=== PATIENT | male | born 1955 | race Caucasian/White ===

== ENCOUNTER 2021-08-07 16:45 | Inpatient (IN) | payer MEDICARE ==
--- NOTE | 2021-08-07 17:58 | XR ---
EXAMINATION TYPE: XR chest 2V DATE OF EXAM: 08/07/2021 COMPARISON: 08/23/2014 HISTORY: Chest pain TECHNIQUE: FINDINGS: Heart is normal. There are sternal wires. Lungs are clear of infiltrate. Costophrenic angle s are clear. Bony thorax is intact. IMPRESSION: No active cardiopulmonary disease. Normal heart. No change.
[2021-08-07 18:03] LABS: Basophils % (A) 0 %; Eosinophils # (A) 0.3 k/uL (0-0.7); Eosinophils % (A) 4 %; HCT 45.4 % (39.0-53.0); HGB 15.3 gm/dL (13.0-17.5); Lymphocytes # (A) 1.7 k/uL (1.0-4.8); Lymphocytes % (A) 20 %; MCH 28.8 pg (25.0-35.0); MCHC 33.6 g/dL (31.0-37.0); MCV 85.7 fL (80.0-100.0); Mean Platelet Volume 8.2; Monocytes # (A) 0.7 k/uL (0-1.0); Monocytes % (A) 8 %; Neutrophils # (A) 5.4 k/uL (1.3-7.7); Neutrophils % (A) 66 %; Platelet Count 230 k/uL (150-450); RDW 13.4 % (11.5-15.5); WBC 8.2 k/uL (3.8-10.6)
[2021-08-07] MEDS ORDERED: ASPIRIN 81 MG PO STA ×2 (18:06→18:07)
[2021-08-07] MEDS ORDERED: NITROGLYCERIN-D5W PMX 50 MG in DEXTROSE/WATER 1 250ML.BAG IV ONE (18:08)
[2021-08-07 18:12] LABS: ALT 30 U/L (4-49); AST 28 U/L (17-59); African American GFR (CKD) >90 (>60 ml/min/1.73 sqM); Albumin 4.5 g/dL (3.5-5.0); Alkaline Phosphatase 67 U/L (38-126); Anion Gap 8 mmol/L; Blood Urea Nitrogen 14 mg/dL (9-20); Calcium 9.7 mg/dL (8.4-10.2); Carbon Dioxide 27 mmol/L (22-30); Chloride 105 mmol/L (98-107); Glucose 92 mg/dL (74-99); INR 0.9 (<1.2); Non-African American GFR(CKD) 90 (>60 ml/min/1.73 sqM); Partial Thromboplastin Time 24.3 sec (22.0-30.0); Potassium 3.8 mmol/L (3.5-5.1); Prothrombin Time 10.2 sec (9.0-12.0); Sodium 140 mmol/L (137-145); Total Bilirubin 1.2 mg/dL (0.2-1.3); Total Protein 7.3 g/dL (6.3-8.2)
--- NOTE | 2021-08-07 18:16 | ED ---
Chest Pain HPI - General Chief Complaint: Chest Pain Stated Complaint: Chest Pressure Time Seen by Provider: 08/07/21 17:58 Source: patient, RN notes reviewed Mode of arrival: ambulatory Limitations: no limitations - History of Present Illness Initial Comments: This is a pleasant 65-year-old male with a history of significant cardiovascular disease. He presents to the emergency department today complaining of chest discomfort which radiates to his neck. Patient states that he has had this previously when he has had angina. Patient states he was lifting and working in the garden prior to onset of this discomfort at 3 PM. Patient did take 162 mg of aspirin prior to arrival. Patient had open heart surgery in 1999. Patient sees Dr. Wilhelm at [facility]. Sensation of shortness of breath. No definite diaphoresis or nausea. No headache, no fever or chills, no changes in vision or hearing, no sore throat or difficulty with speech, no neck pain, , no abdominal pain, no nausea or vomiting, no changes in urination or bowel movements, no numbness or tingling, no extremity pain, no skin rashes or lesions. MD Complaint: chest pain - Related Data Home Medications Medication Instructions Recorded Confirmed Aspirin EC [Ecotrin Low Dose] 81 mg PO W/SUPPER 08/07/21 08/07/21 Cholecalciferol [Vitamin D3 (25 50 mcg PO W/SUPPER 08/07/21 08/07/21 Mcg = 1000 Iu)] Multivitamins, Thera [Multivitamin 1 tab PO W/SUPPER 08/07/21 08/07/21 (formulary)] Omeprazole 40 mg PO DAILY 08/07/21 08/07/21 Simvastatin 40 mg PO HS 08/07/21 08/07/21 atenoloL 25 mg PO HS 08/07/21 08/07/21 lisinopriL 2.5 mg PO HS 08/07/21 08/07/21 Allergies Allergy/AdvReac Type Severity Reaction Status Date / Time No Known Allergies Allergy Verified 08/07/21 18:58 Review of Systems ROS Statement: Those systems with pertinent positive or pertinent negative responses have been documented in the HPI. ROS Other: All systems not noted in ROS Statement are negative. Past Medical History Past Medical History: Coronary Artery Disease (CAD), Chest Pain / Angina, Hyperlipidemia History of Any Multi-Drug Resistant Organisms: None Reported Past Surgical History: Cardiac Valve Replacement, Coronary Bypass/CABG, Heart Catheterization With Stent Past Psychological History: No Psychological Hx Reported Smoking Status: Never smoker Past Alcohol Use History: Occasional Past Drug Use History: None Reported General Exam Limitations: no limitations General appearance: alert, in no apparent distress Head exam: Present: atraumatic, normocephalic, normal inspection Eye exam: Present: normal appearance, PERRL, EOMI. Absent: scleral icterus, conjunctival injection, periorbital swelling ENT exam: Present: normal exam, mucous membranes moist, TM's normal bilaterally, normal external ear exam Neck exam: Present: normal inspection, full ROM. Absent: tenderness, meningismus, lymphadenopathy Respiratory exam: Present: normal lung sounds bilaterally. Absent: respiratory distress, wheezes, rales, rhonchi, stridor Cardiovascular Exam: Present: regular rate, normal heart sounds. Absent: normal rhythm (Irregular rhythm), systolic murmur, diastolic murmur, rubs, gallop, clicks GI/Abdominal exam: Present: soft, normal bowel sounds. Absent: distended, tenderness, guarding, rebound, rigid Extremities exam: Present: normal inspection, full ROM, normal capillary refill. Absent: tenderness, pedal edema, joint swelling, calf tenderness Back exam: Present: normal inspection Neurological exam: Present: alert, oriented X3, CN II-XII intact Psychiatric exam: Present: normal affect, normal mood Skin exam: Present: warm, dry, intact, normal color. Absent: rash Course Vital Signs 08/07/21 08/07/21 08/07/21 16:52 18:28 18:30 Temperature 97.8 F Pulse Rate 68 84 Pulse Rate [ 72 Insurance Adjuster ] Respiratory 18 18 Rate Blood Pressure 139/77 146/96 O2 Sat by Pulse 97 98 Oximetry 08/07/21 08/07/21 08/07/21 20:00 21:00 22:00 Temperature Pulse Rate 70 83 75 Pulse Rate [ Insurance Adjuster ] Respiratory 21 21 22 Rate Blood Pressure 129/83 101/71 133/101 O2 Sat by Pulse 96 94 L 93 L Oximetry 08/07/21 23:00 Temperature Pulse Rate 80 Pulse Rate [ Insurance Adjuster ] Respiratory 18 Rate Blood Pressure 98/62 O2 Sat by Pulse 95 Oximetry - Reevaluation(s) Reevaluation #1: 08/07/21 18:51 Medical record is reviewed Symptoms are somewhat improved Patient is informed of results and questions answered Patient in no distress Reevaluation #2: 08/07/21 19:40 Medical record is reviewed Symptoms are improved here in the emergency department Patient is informed of results and questions answered Patient in no distress Chest Pain MDM - MDM EKG done at 1731 and rhythm with ED attending physician reveals sinus rhythm with frequent PVCs. Bigeminal rhythm. Rate 77, normal intervals. No evidence of ST elevation or depression. Normal axis. The case was discussed in detail with ED attending physician. Presentation, findings, treatment plan discussed in detail. Dr. Brownlee Call placed for Dr. Chacon patient informed of all findings. All results discussed. All questions answered. Treatment plan discussed. We'll admit the patient for unstable angina. Atorvastatin and beta alejandro given. Patient does take these medications at home but has not taken yet today. Patient took 162 mg resting prior to arrival. I did supplement with 162 here. Patient was improved on a nitroglycerin drip. Patient's heart score is 7 due to family history and significant risk factors as well as personal history. Critical Care Time Critical Care Time: Yes (Critical care time for acute coronary syndrome. Multiple evaluations. Pat) Total Critical Care Time: 30 Disposition Clinical Impression: Acute coronary syndrome without high troponin, Ventricular bigeminy Disposition: ADMITTED IP TO THIS [facility] Time of Disposition: 18:52 Decision to Admit Reason: Admit from EC Decision Time: 18:52
[2021-08-07] MEDS ORDERED: atenoloL 25 MG TAB PO STA (18:51)
[2021-08-07] MEDS ORDERED: ATORVASTATIN 40 MG TAB PO STA (18:51)
[2021-08-07] MEDS ORDERED: HEPARIN SODIUM 1,000 UN/ML (10ML VL) IV PRN (18:56)
[2021-08-07] MEDS ORDERED: HEPARIN SODIUM 1,000 UN/ML (10ML VL) IV ONE (18:56)
[2021-08-07] MEDS: SODIUM CHLORIDE 0.9% 1,000 ML IV SCH (20:28)
[2021-08-07] MEDS: HEPARIN SOD,PORK IN 0.45% NACL 25,000 UNIT in 0.45% NACL 1 250ML.BAG IV SCH (20:29)
[2021-08-08 03:26] LABS: Mean Platelet Volume 8.1; Platelet Count 227 k/uL (150-450)
[2021-08-08] MEDS: ACETAMINOPHEN TAB 500 MG TAB PO STA ×2 (03:47→03:53)
[2021-08-08] MEDS ORDERED: ASPIRIN 325 MG TAB ONE (09:00)
[2021-08-08] MEDS ORDERED: ASPIRIN 325 MG TAB PO SCH (09:00)
[2021-08-08] MEDS: SODIUM CHLORIDE 0.9% 1,000 ML IV SCH ×2 (11:54→13:24)
--- NOTE | 2021-08-08 12:10 | CONS ---
CONSULTATION CHIEF COMPLAINT: Chest pain. Michael is a 65-year-old gentleman with history of coronary artery disease, status post CABG, status post mitral valve repair about 20 years ago, had subsequent cardiac catheterization and angioplasty about 15 years ago, hypertension and dyslipidemia. He presented to hospital complaining of precordial chest pressure that radiated to his shoulders and neck. He was treated with intravenous heparin, IV nitroglycerin and is symptom-free at the time of my evaluation this morning. His EKG shows sinus rhythm with ventricular bigeminy. While I do not have access to his records, his troponins I am told are negative. Patient follows with Dr. Wilhelm at [facility] and apparently had a negative stress echo a year ago. Patient lives in [place]. Given the patient's symptomatology suggestive of unstable angina, I am advising the patient to undergo cardiac catheterization for further evaluation. He understands risks, benefits and alternatives, and he wishes to proceed with it. I gave him the option of being transferred to [facility]. He wishes to have it done here. The [facility] system is down. We are not able to do the case this morning. I will do it tomorrow morning. In the meantime, I will get hold of his records from [place]. PAST MEDICAL HISTORY: Significant for CAD, status post CABG, mitral regurgitation, status post mitral valve repair, hypertension and dyslipidemia. MEDICATIONS: Medications at home include aspirin, atenolol 25 mg daily, lisinopril 2.5 mg daily, simvastatin 40 mg daily and omeprazole. ALLERGIES: There are NO KNOWN DRUG ALLERGIES. FAMILY HISTORY: Significant for premature coronary artery disease. His father in his 50s. A brother has carotid stenosis. SOCIAL HISTORY: Negative for smoking, EtOH abuse or drug abuse. REVIEW OF SYSTEMS: HEENT is unremarkable. CARDIAC: As described above. RESPIRATORY: Negative. GI: Negative. GENITOURINARY: Negative. ALLERGY/IMMUNOLOGY: Negative. SKIN: Negative. MUSCULOSKELETAL: Significant for arthritis. PSYCHOSOCIAL: Negative. DERMATOLOGY: Negative. CONSTITUTIONAL: Negative. ONCOLOGICAL: Negative. ACCOUNT SOLUTIONS ANALYST: Negative. PSYCHOSOCIAL: Negative. Rest of the system review is not relevant. PHYSICAL EXAMINATION: Comfortable at rest. Vital signs are stable. There is no jugular venous distention. Carotid upstroke is normal. There is no bruit. Chest exam reveals good air entry bilaterally. Heart exam reveals first and second heart sounds. No gallop. No murmur. No rub. Abdomen is soft, nontender. Examination of extremities did not reveal any edema. Peripheral pulses are felt. Labs are not available at this time. ASSESSMENT: 1. Unstable angina. 2. Coronary artery disease, status post coronary artery bypass grafting. 3. History of mitral valve repair. 4. Hypertension. 5. Dyslipidemia. PLAN: I will obtain records from [facility] and patient will undergo cardiac catheterization tomorrow. This evaluation of the patient and this dictation are being done at a time when the [facility] is not functioning. Our information may be incomplete and inaccurate. MMODL / IJN: [id number] /
[2021-08-08] MEDS ORDERED: ALPRAZolam 0.25 MG TAB PO PRN (12:24)
[2021-08-08] MEDS ORDERED: ALPRAZolam 0.5 MG TAB PO PRN (12:24)
[2021-08-08] MEDS ORDERED: NITROGLYCERIN SL TABS 0.4 MG TAB SUBLINGUAL PRN (12:24)
--- NOTE | 2021-08-08 13:07 | HP ---
HISTORY AND PHYSICAL This is a 65-year-old white male with history of coronary artery disease CABG, status post mitral valve repair 20 years ago, angioplasty 15 years ago, hypertension, dyslipidemia. He came in with precordial chest pain radiating to shoulders. He is on IV heparin, IV nitroglycerin, which took his pain away overnight. He had ventricular bigeminy on his EKG, for which they admitted him. He sees Dr. Wilhelm at [facility]. He had a negative stress echo a year ago. Cardiology saw him already today and recommended cardiac catheterization. He is going to have it done here tomorrow morning. PAST MEDICAL HISTORY: Coronary artery disease, CABG, mitral valve repair. MEDICATIONS: See list. They were reviewed. Family history reviewed. Social history reviewed. ALLERGIES: Negative. Fourteen-point review of systems otherwise negative. Vital signs are reviewed. They are stable. Cardiovascular S1, S2. Lungs clear. No JVD. Abdomen soft, nontender. Extremities with no cyanosis, clubbing, edema. Peripheral pulses normal. ASSESSMENT: 1. Unstable angina. 2. Coronary artery disease, status post coronary artery bypass grafting. 3. Hypertension. 4. History of mitral valve repair. 5. Dyslipidemia. He is going to get a cardiac catheterization in the morning. Home medications will be reviewed. Continue current treatment. Prognosis guarded. MMODL / IJN: [id number] /
[2021-08-08] MEDS: NITROGLYCERIN OINT 1 INCH/GM PACKET TOPICAL SCH ×3 (13:23→23:40)
[2021-08-08] MEDS: PANTOPRAZOLE 40 MG TABLET PO SCH (13:24)
[2021-08-08] MEDS: ASPIRIN 81 MG PO SCH (15:14)
[2021-08-08] MEDS: HEPARIN SOD,PORK IN 0.45% NACL 25,000 UNIT in 0.45% NACL 1 250ML.BAG IV SCH (16:28)
[2021-08-08] MEDS: MULTIVITAMINS, THERA 1 EACH TAB PO SCH (17:04)
[2021-08-08] MEDS ORDERED: CALCIUM CARBONATE 500 MG CHEWABLE PO PRN (19:36)
[2021-08-08] MEDS: ACETAMINOPHEN TAB 325 MG TAB PO PRN (19:57)
[2021-08-08] MEDS: ATORVASTATIN 40 MG TAB PO SCH (19:58)
[2021-08-08] MEDS ORDERED: ATORVASTATIN 20 MG TAB PO SCH (21:00)
[2021-08-08] MEDS: atenoloL 25 MG TAB PO SCH (22:00)
[2021-08-08] MEDS: SODIUM CHLORIDE 0.9% 1,000 ML in EMPTY BAG 1 BAG IV SCH (23:44)
[2021-08-09 02:53] LABS: Chol/HDL Ratio 3.28 Ratio; LDL Cholesterol,Calculated 62.1 mg/dL (0.0-131.0)
[2021-08-09] MEDS ORDERED: ASPIRIN 325 MG TAB PO ONE (05:00)
[2021-08-09] MEDS ORDERED: ATORVASTATIN 80 MG TAB PO ONE (05:00)
[2021-08-09] MEDS: PANTOPRAZOLE 40 MG TABLET PO SCH (05:42)
[2021-08-09] MEDS: SODIUM CHLORIDE 0.9% 1,000 ML IV SCH ×4 (05:50→21:10)
[2021-08-09 06:05] LABS: Glucose,Whole Blood 90 mg/dL (75-99)
[2021-08-09] MEDS: NITROGLYCERIN OINT 1 INCH/GM PACKET TOPICAL SCH (06:31)
[2021-08-09] MEDS ORDERED: HEPARIN SODIUM,PORCINE 2,500 UNIT in SODIUM CHLORIDE 0.9% 250 ML IRRIGATION PRN (07:00)
[2021-08-09] MEDS ORDERED: HEPARIN SODIUM,PORCINE 10,000 UNIT in SODIUM CHLORIDE 0.9% 1,000 ML IRRIGATION PRN (07:00)
--- NOTE | 2021-08-09 07:19 | CA ---
Transthoracic Echo Report Name: Michael Varghese Age: 65 Gender: M : 1955 Exam Date: 08/08/2021 11:27 Exam Location: [facility] Ht (in): 70 Wt (lb): 175 Ordering Physician: Kevin Melton Attending/Referring Phys: Assistant Finance Manager Alka Siddiqui RDCS Procedure CPT: Indications: Chest pain, unstable angina Cardiac Hx: History of mitral valve repair, CABG and PCI with stents Technical Quality: Good Contrast 1: Total Dose (mL): Contrast 2: Total Dose (mL): MEASUREMENTS (Male / Female) Normal Values 2D ECHO LV Diastolic Diameter PLAX 4.9 cm 4.2 - 5.9 / 3.9 - 5.3 cm LV Systolic Diameter PLAX 3.3 cm IVS Diastolic Thickness 1.3 cm 0.6 - 1.0 / 0.6 - 0.9 cm LVPW Diastolic Thickness 1.1 cm 0.6 - 1.0 / 0.6 - 0.9 cm LV Relative Wall Thickness 0.5 RV Internal Dim ED PLAX 3.8 cm LA Systolic Diameter LX 4.7 cm 3.0 - 4.0 / 2.7 - 3.8 cm LA Volume 84.9 cm 18 - 58 / 22 - 52 cm M-MODE Aortic Root Diameter MM 3.7 cm MV E Point Septal Separation 1.0 cm AV Cusp Separation MM 1.9 cm DOPPLER AV Peak Velocity 126.8 cm/s AV Peak Gradient 6.4 mmHg MV Peak Velocity 198.4 cm/s MV Peak Gradient 15.7 mmHg MV Mean Velocity 77.3 cm/s MV Mean Gradient 3.2 mmHg MV Velocity Time Integral 86.7 cm MV Area PHT 2.7 cm Mitral E Point Velocity 197.5 cm/s Mitral A Point Velocity 107.7 cm/s Mitral E to A Ratio 1.8 MV Deceleration Time 197.6 ms TR Peak Velocity 267.2 cm/s TR Peak Gradient 28.6 mmHg Right Ventricular Systolic Press 32.4 mmHg FINDINGS Left Ventricle Mildly increased septal wall thickness. Left ventricular ejection fraction is estimated at 40-45 %. Right Ventricle Right ventricular dilatation. Mild pulmonary hypertension. Right Atrium Normal right atrial size. Left Atrium Moderately increased left atrial diameter. Severely increased left atrial volume. Mildly increased left atrial area. Mitral Valve Mitral valve thickened. Mild mitral annular calcification. MV repair Aortic Valve Aortic valve sclerosis. Tricuspid Valve Mild tricuspid regurgitation. Pulmonic Valve [id number] pulmonic regurgitation. Doming pulmonic valve cusps. Pericardium No pericardial effusion. Aorta Normal size aortic root and proximal ascending aorta. CONCLUSIONS LV size is normal. There is mild concentric LVH. Mild global decrease in contractility with estimated ejection fraction of 45%. Mitral valve the patient is evident. There is mild mitral regurgitation. No stenosis. There is aortic valve sclerosis. There is mild tricuspid insufficiency and no pulmonary hypertension. No pericardial effusion Previewed by: Dr. Justen Ramirez MD (Electronically Signed) Final Date: 09 August 2021 07:18
[2021-08-09 07:45] LABS: Mean Platelet Volume 8.3; Platelet Count 243 k/uL (150-450)
[2021-08-09 10:16] LABS: HCT 43.5 % (39.0-53.0); HGB 14.2 gm/dL (13.0-17.5); MCHC 32.6 g/dL (31.0-37.0); MCV 88.9 fL (80.0-100.0); Mean Platelet Volume 8.2; Platelet Count 221 k/uL (150-450); RDW 13.1 % (11.5-15.5)
[2021-08-09 10:20] LABS: African American GFR (CKD) >90 (>60 ml/min/1.73 sqM); Anion Gap 5 mmol/L; Blood Urea Nitrogen 11 mg/dL (9-20); Calcium 9.3 mg/dL (8.4-10.2); Carbon Dioxide 28 mmol/L (22-30); Chloride 107 mmol/L (98-107); Glucose 96 mg/dL (74-99); Non-African American GFR(CKD) >90 (>60 ml/min/1.73 sqM); Potassium 3.9 mmol/L (3.5-5.1); Sodium 140 mmol/L (137-145)
[2021-08-09] MEDS ORDERED: IV FLUID CONTINUATION 900 ML IV ONE ×2 (10:55)
[2021-08-09] MEDS ORDERED: MIDAZOLAM 2 MG/2 ML VIAL IV ONE (11:08)
[2021-08-09] MEDS: fentaNYL (PF) 50 MCG/ML 2 ML AMP IV ONE ×2 (11:08→11:15)
[2021-08-09] MEDS ORDERED: LIDOCAINE 1% PF 10 MG/ML (5 ML AMP) SQ ONE (11:10)
[2021-08-09] MEDS ORDERED: IOPAMIDOL-370 125ML BTL INJ ONE (11:45)
[2021-08-09] MEDS ORDERED: RX INFO: IV CONTRAST WAS GIVEN 1 EACH MISC MISCELLANE PRN (12:13)
[2021-08-09] MEDS: SODIUM CHLORIDE 0.9% 1,000 ML in EMPTY BAG 1 BAG IV SCH (12:52)
--- NOTE | 2021-08-09 13:23 | CC ---
CARDIAC CATHETERIZATION REPORT INDICATION: Unstable angina. This is a 65-year-old gentleman with history of coronary artery disease, status post CABG with FENTON to LAD, venous graft to diagonal, venous graft to OM, and prior stenting of the right coronary artery and mitral valve repair, who presented to hospital with unstable angina and ruled out for myocardial infarction. An echocardiogram showed LV systolic dysfunction with an ejection fraction of around 40% to 45%. Given his symptoms of unstable angina, he was advised to undergo cardiac catheterization. The patient, understanding risks, benefits and alternatives, wished to proceed with this. His last cardiac catheterization was done in June of 2013, and at that time his FENTON was atretic, venous graft to the OM was occluded, and the venous graft to diagonal was patent. He was advised medical therapy. He last had a stress test in 2019 that did not reveal ischemia. PROCEDURE NOTE: After obtaining informed consent, left heart catheterization, coronary angiogram, selective injection of the bypass grafts were performed via the right femoral artery using standard Citlalli catheters. Patient had a very tortuous arch of the aorta, but the procedure was completed uneventfully. Right and left coronaries were engaged using Citlalli catheters. The venous graft to the diagonal was engaged using the right Citlalli. Images of the FENTON were obtained using a FENTON catheter. Pigtail was used to obtain hemodynamics. FINDINGS: 1. [place] coronaries: Right coronary artery is a large dominant vessel that was previously stented. Stents appear patent. There is mild to moderate diffuse disease, but we do not see any focal stenotic lesion. 2. Left main coronary artery appears calcified and shows mild disease. It divides into left anterior descending coronary artery and circumflex coronary artery. LAD shows a focal 90% stenosis proximally. This is a long segment of stenosis. Circumflex coronary artery appears calcified. There is a 70% proximal stenosis noted. 3. Selective injection of the bypass grafts. On a previous catheterization venous graft to the OM was occluded. We demonstrated the venous graft to the diagonal. It is widely patent and it is supplying the entire diagonal and LAD. 4. Subclavian angiogram failed to demonstrated FENTON, which was atretic on a previous catheterization and is probably occluded. 5. Left ventricular end-diastolic pressure was 14 and there is no significant gradient across the aortic valve. CONCLUSIONS: Three-vessel coronary artery disease as described above with patent stents within the right coronary artery, patent venous graft to the diagonal, which is supplying the entire LAD distribution, with occluded venous graft to the circumflex and possible atretic FENTON to the LAD. [place] circumflex coronary artery has a significant lesion. PLAN: I will review angiographic data with Dr. Jose Ramirez to see if we should perform angioplasty of [place] circumflex coronary artery. MMODL / IJN: [id number] /
[2021-08-09] MEDS: ACETAMINOPHEN TAB 325 MG TAB PO PRN (13:44)
[2021-08-09] MEDS: ASPIRIN 81 MG PO SCH (16:57)
[2021-08-09] MEDS: MULTIVITAMINS, THERA 1 EACH TAB PO SCH (16:57)
[2021-08-09] MEDS: ATORVASTATIN 40 MG TAB PO SCH (21:09)
[2021-08-09] MEDS: atenoloL 25 MG TAB PO SCH (21:09)
[2021-08-10] MEDS: SODIUM CHLORIDE 0.9% 1,000 ML in EMPTY BAG 1 BAG IV SCH (01:32)
[2021-08-10] MEDS: SODIUM CHLORIDE 0.9% 1,000 ML IV SCH (02:06)
[2021-08-10] MEDS: PANTOPRAZOLE 40 MG TABLET PO SCH (06:53)
[2021-08-10] MEDS ORDERED: ISOSORBIDE MONONITRATE ER 30 MG TAB.ER.24H PO SCH (09:00)
--- NOTE | 2021-08-10 09:11 | PN ---
PROGRESS NOTE Michael Varghese is a 65-year-old white male, status post acute coronary syndrome. Heart catheterization shows possible stent needed in right coronary artery. They are going to treat him medically instead. Prior bypass of collateral ligaments from bypass with chronically occluded LAD were seen. Patient continues on current treatment. Possible discharge home tomorrow. Sitting up in bed, giving appropriate answers. Cardiovascular S1, S2. Lungs clear. GI soft. ASSESSMENT: Acute coronary syndrome, probable coronary artery disease, problem 60% to 80% of the right coronary artery. Will have to do outpatient stress test, possibly cardiologist. Risk factor modification. MMODL / IJN: [id number] /
[2021-08-10 09:18] LABS: Platelet Count 232 k/uL (150-450)
[2021-08-10 09:29] LABS: African American GFR (CKD) >90 (>60 ml/min/1.73 sqM); Anion Gap 7 mmol/L; Blood Urea Nitrogen 12 mg/dL (9-20); Calcium 9.6 mg/dL (8.4-10.2); Carbon Dioxide 29 mmol/L (22-30); Chloride 102 mmol/L (98-107); Glucose 135 mg/dL (74-99); Non-African American GFR(CKD) 85 (>60 ml/min/1.73 sqM); Potassium 3.9 mmol/L (3.5-5.1); Sodium 138 mmol/L (137-145)
[2021-08-10 09:49] VITALS: RESP 18; TEMP 97.2
--- NOTE | 2021-08-10 14:12 | P.PN ---
Subjective Progress Note Date: 08/10/21 HISTORY OF PRESENT ILLNESS: patient is status post cardiac catheterization revealing triple vessel coronary artery disease with patent stents within the right coronary artery, patent venous graft to diagonal which is supplying the entire LAD distribution, with occluded venous graft to the circumflex and possible atretic FENTON to LAD. Patient denies chest pain or pressure. Denies SOB. Vital signs are stable. PHYSICAL EXAM: VITAL SIGNS: Reviewed. GENERAL: Well-developed in no acute distress. NECK: Supple. No JVD or thyromegaly LUNGS: Respirations even and unlabored. Lungs essentially clear to auscultation bilaterally. HEART: Regular rate and rhythm. S1 and S2 heard. EXTREMITIES: Normal range of motion. No clubbing or cyanosis. Peripheral pulses intact. No lower extremity edema ASSESSMENT: Unstable angina, s/p cath with results as listed above Coronary artery disease with previous CABG Hypertension Hyperlipidemia History of mitral valve repair PLAN: Continue current cardiac medications Add imdur 30mg daily Patient may be discharged home today and follow up on an outpatient basis Nurse practitioner note has been reviewed by physician. Signing provider agrees with the documented findings, assessment, and plan of care. Objective - Vital Signs Vital signs: Vital Signs Temp 97.2 F L 08/10/21 08:00 Pulse 60 08/10/21 08:00 Resp 18 08/10/21 08:00 BP 144/74 08/10/21 08:00 Pulse Ox 99 08/10/21 08:00 Intake & Output 08/09/21 08/10/21 08/10/21 18:59 06:59 18:59 Intake Total 608.938 240 Balance 608.938 240 Intake: IV 300 Intake, IV Titration 190.938 Amount Heparin Sod,Pork in 0.45% 190.938 NaCl 25,000 unit In 0.45 % NaCl 1 250ml.bag @ 12 UNITS/KG/HR 9.525 mls/hr IV .Q24H ANÍBAL Rx#: [id number] Oral 118 240 Other: # Voids 1 1 - Labs CBC & Chem 7: 08/10/21 08:49 08/10/21 08:49 Labs: Abnormal Lab Results - Last 24 Hours (Table) 08/10/21 Range/Units 08:49 Glucose 135 H (74-99) mg/dL
[2021-08-10 16:35] VITALS: BP 109/66; PULSE 67
== END 2021-08-10 16:31 | disposition home or self-care (01) | DRG 287 ==
LOC: EC 16:45 → 3SCARD 19:11 → 2SICU 08-08 15:45 → 3SCARD 08-09 15:18
PROVIDERS: ADMIT Family Medicine; ATTEND Family Medicine
PROC: B2131ZZ Fluoroscopy of Multiple Coronary Artery Bypass Grafts using Low Osmolar Contrast (ICD-10-PCS; principal; 2021-08-09 09:00)
PROC: B2181ZZ Fluoroscopy of Left Internal Mammary Bypass Graft using Low Osmolar Contrast (ICD-10-PCS; principal; 2021-08-09 09:00)
PROC: B2111ZZ Fluoroscopy of Multiple Coronary Arteries using Low Osmolar Contrast (ICD-10-PCS; principal; 2021-08-09 09:00)
PROC: 4A023N7 Measurement of Cardiac Sampling and Pressure, Left Heart, Percutaneous Approach (ICD-10-PCS; principal; 2021-08-09 09:00)
DX: I25.710 Atherosclerosis of autologous vein coronary artery bypass graft(s) with unstable angina pectoris (principal); I25.110 Atherosclerotic heart disease of native coronary artery with unstable angina pectoris; Z20.822 Contact with and (suspected) exposure to COVID-19; I25.84 Coronary atherosclerosis due to calcified coronary lesion; E78.5 Hyperlipidemia, unspecified; I34.0 Nonrheumatic mitral (valve) insufficiency; I49.3 Ventricular premature depolarization; I10 Essential (primary) hypertension; Z79.82 Long term (current) use of aspirin; Z79.899 Other long term (current) drug therapy; Z95.2 Presence of prosthetic heart valve; Z95.5 Presence of coronary angioplasty implant and graft; Z95.1 Presence of aortocoronary bypass graft; Z82.49 Family history of ischemic heart disease and other diseases of the circulatory system
CPT/HCPCS: 36415; 71046; 80048; 80053; 80061; 83735; 84484; 85025; 85027; 85049; 85610; 85730; 87635; 93005; 93306; 93459; 96365; 96366; 96375; 96376; 99291

== ENCOUNTER → 2021-11-04 | Outpatient (CLI) | payer MEDICARE ==
[2021-11-04 15:01] LABS: ALT 22 U/L (10-49); AST 24 U/L (14-35); Chol/HDL Ratio 3.05 Ratio; LDL Cholesterol,Calculated 79.4 mg/dL (0.0-131.0); VLDL Calculation 18.74 mg/dL (5.00-40.00)
== END | disposition home or self-care (01) ==
LOC: LABWHC1 07:33
PROVIDERS: ATTEND Internal Medicine Interventional Cardiology
DX: E78.2 Mixed hyperlipidemia (principal)
CPT/HCPCS: 36415; 80061; 84450; 84460

== ENCOUNTER 2022-09-29 13:52 | Emergency (ER) | payer MEDICARE ==
[2022-09-29 14:28] VITALS: PULSE 68
[2022-09-29 15:09] LABS: Appearance,Urine Clear (Clear); Bilirubin,Urine Negative (Negative); Blood,Urine Large (Negative); Color,Urine Yellow; Glucose,Urine (UA) Negative (Negative); Ketones,Urine Negative (Negative); Leukocyte Esterase,Urine Negative (Negative); Nitrite,Urine Negative (Negative); PH, Urine 5.5 (5.0-8.0); Protein,Urine Negative (Negative); RBC,Urine >182 /hpf (0-5); Specific Gravity,Urine 1.015 (1.001-1.035); Urobilinogen,Urine <2.0 mg/dL (<2.0)
--- NOTE | 2022-09-29 15:11 | ED ---
General Adult HPI - General Chief complaint: Urogenital Stated complaint: poss uti - sent by urgent care Time Seen by Provider: 09/29/22 14:32 Source: patient, RN notes reviewed, old records reviewed Mode of arrival: ambulatory Limitations: no limitations - History of Present Illness Initial comments: 67-year-old -male presenting with dysuria and hematuria. Patient was seen in urgent care and sent to the emergency department for evaluation. Patient denies fever. Denies vomiting. Denies flank pain or abdominal pain. - Related Data Home Medications Medication Instructions Recorded Confirmed Aspirin EC [Ecotrin Low Dose] 81 mg PO W/SUPPER 08/07/21 08/07/21 Cholecalciferol [Vitamin D3 (25 50 mcg PO W/SUPPER 08/07/21 08/07/21 Mcg = 1000 Iu)] Multivitamins, Thera [Multivitamin 1 tab PO W/SUPPER 08/07/21 08/07/21 (formulary)] Omeprazole 40 mg PO DAILY 08/07/21 08/07/21 Simvastatin 40 mg PO HS 08/07/21 08/07/21 atenoloL 25 mg PO HS 08/07/21 08/07/21 lisinopriL 2.5 mg PO HS 08/07/21 08/07/21 Previous Rx's Medication Instructions Recorded Acetaminophen Tab [Tylenol] 650 mg PO Q4HR PRN tab 08/10/21 Calcium Carbonate [Tums] 1,000 mg PO QID PRN 08/10/21 Isosorbide Mononitrate ER [Imdur] 30 mg PO DAILY 90 Days #90 08/10/21 Nitroglycerin Sl Tabs [Nitrostat] 0.4 mg SUBLINGUAL Q5M PRN 90 Days 08/10/21 #90 tab Allergies Allergy/AdvReac Type Severity Reaction Status Date / Time No Known Allergies Allergy Verified 09/29/22 14:28 Review of Systems ROS Statement: Those systems with pertinent positive or pertinent negative responses have been documented in the HPI. ROS Other: All systems not noted in ROS Statement are negative. Past Medical History Past Medical History: Coronary Artery Disease (CAD), Chest Pain / Angina, Hyperlipidemia Additional Past Medical History / Comment(s): Cardiac bypass January 2000, mitral valve repair January 2000, heart cath 2008 with stents. History of Any Multi-Drug Resistant Organisms: None Reported Past Surgical History: Cardiac Valve Replacement, Coronary Bypass/CABG, Heart Catheterization With Stent Past Anesthesia/Blood Transfusion Reactions: No Reported Reaction Date of Last Stent Placement:: 2008 Past Psychological History: No Psychological Hx Reported Smoking Status: Never smoker Past Alcohol Use History: Occasional Past Drug Use History: None Reported - Past Family History Father Additional Family Medical History / Comment(s): Passed at 80 with heart disease. Mother Additional Family Medical History / Comment(s): Passed at 56 with heart disease. General Exam Limitations: no limitations General appearance: alert, in no apparent distress Head exam: Present: atraumatic, normocephalic Eye exam: Present: normal appearance, PERRL ENT exam: Present: normal exam, normal oropharynx Neck exam: Present: normal inspection. Absent: tenderness, meningismus Respiratory exam: Present: normal lung sounds bilaterally. Absent: respiratory distress, wheezes Cardiovascular Exam: Present: regular rate, normal rhythm GI/Abdominal exam: Present: soft. Absent: distended, tenderness Extremities exam: Present: normal inspection, normal capillary refill Neurological exam: Present: alert, oriented X3, CN II-XII intact. Absent: motor sensory deficit Psychiatric exam: Present: normal affect, normal mood Skin exam: Present: warm, dry, intact. Absent: cyanosis, diaphoretic Course Vital Signs 09/29/22 09/29/22 14:23 16:55 Temperature 98.0 F 98.1 F Pulse Rate 68 Respiratory 20 61 H Rate Blood Pressure 143/78 146/90 O2 Sat by Pulse 100 100 Oximetry Medical Decision Making - Medical Decision Making Was pt. sent in by a medical professional or institution (, PA, ASSEMBLER [employer], urgent care, hospital, or fpc...) When possible be specific @ -Sent from urgent care Did you speak to anyone other than the patient for history (EMS, parent, family, police, friend...)? What history was obtained from this source @ -No Did you review nursing and triage notes (agree or disagree)? Why? @ -I reviewed and agree with nursing and triage notes Were old charts reviewed (outside hosp., previous admission, EMS record, old EKG, old radiological studies, urgent care reports/EKG's, fpc records)? Report findings @ -No old charts were reviewed Differential Diagnosis (chest pain, altered mental status, abdominal pain women, abdominal pain men, vaginal bleeding, weakness, fever, dyspnea, syncope, headache, dizziness, GI bleed, back pain, seizure, CVA, palpatations, mental health, musculoskeletal)? @ -Hematuria, renal stone, hemorrhagic cystitis, renal cyst, renal tumor, bladder tumor EKG interpreted by me (3pts min.). @ -As above X-rays interpreted by me (1pt min.). @ -None done CT interpreted by me (1pt min.). @ CT reviewed by myself, showing a right cortical hyperdensity likely renal cyst, no hydronephrosis or obstructing stone, there is a enlarged prostate freddy uring 5.6 cm U/S interpreted by me (1pt. min.). @ -None done What testing was considered but not performed or refused? (CT, X-rays, U/S, labs)? Why? @ -None What meds were considered but not given or refused? Why? @ -None Did you discuss the management of the patient with other professionals (professionals i.e. , PA, ASSEM[employer]ER [employer], lab, RT, psych nurse, social work professor, mortgage protection sales, teacher, commissary officer, case work aide)? Give summary @ -No Was smoking cessation discussed for >3mins.? @ -No Was critical care preformed (if so, how long)? @ -No Were there social determinants of health that impacted care today? How? (Homelessness, low income, unemployed, alcoholism, drug addiction, transportation, low edu. Level, literacy, decrease access to med. care, prison, rehab)? @ -No Was there de-escalation of care discussed even if they declined (Discuss DNR or withdrawal of care, Hospice)? DNR status @ -No What co-morbidities impacted this encounter? (DM, HTN, Smoking, COPD, CAD, Cancer, CVA, ARF, Chemo, Hep., AIDS, mental health diagnosis, sleep apnea, morbid obesity)? @ -[Hypertension Was patient admitted / discharged? Hospital course, mention meds given and route, prescriptions, significant lab abnormalities, going to OR and other pertinent info. @ -67-year-old male with hematuria and dysuria. Urinalysis is yellow with greater than 182 red cells. No signs of infection. There is a renal cyst on CT as well as an enlarged prostate. This patient will benefit from urology follow-up. Return parameters discussed. Additionally the CT shows a abdominal aortic aneurysm and the patient is informed of this and will this will require surveillance. Undiagnosed new problem with uncertain prognosis? @ -No Drug Therapy requiring intensive monitoring for toxicity (Heparin, Nitro, Insulin, Cardizem)? @ -No Were any procedures done? @ -No Diagnosis/symptom? @ -Hematuria Acute, or Chronic, or Acute on Chronic? @ Acute Uncomplicated (without systemic symptoms) or Complicated (systemic symptoms)? @ -[Complicated Side effects of treatment? @ -No Exacerbation, Progression, or Severe Exacerbation? @ -No Poses a threat to life or bodily function? How? (Chest pain, [place], [place], pneumonia, PE, COPD, DKA, ARF, appy, cholecystitis, CVA, Diverticulitis, Homicidal, Suicidal, threat to staff... and all critical care pts) @ Low risk - Lab Data Lab Results 09/29/22 Range/Units 14:46 Urine Color Yellow Urine Appearance Clear (Clear) Urine pH 5.5 (5.0-8.0) Ur Specific [place] 1.015 (1.001-1.035) Urine Protein Negative (Negative) Urine Glucose (UA) Negative (Negative) Urine Ketones Negative (Negative) Urine Blood Large H (Negative) Urine Nitrite Negative (Negative) Urine Bilirubin Negative (Negative) Urine Urobilinogen <2.0 (<2.0) mg/dL Ur Leukocyte Esterase Negative (Negative) Urine RBC >182 H (0-5) /hpf Disposition Clinical Impression: Hematuria, Enlarged prostate, Renal cyst Disposition: HOME SELF-CARE Condition: Fair Instructions (If sedation given, give patient instructions): Hematuria (ED) Is patient prescribed a controlled substance at d/c from ED?: No Referrals: Di Pompa DO [Primary Care Provider] - 1-2 days Humberto Mcwilliams MD [STAFF PHYSICIAN] - 1-2 days Time of Disposition: 16:16
--- NOTE | 2022-09-29 16:06 | CT ---
EXAMINATION TYPE: CT abdomen pelvis wo con DATE OF EXAM: 09/29/2022 COMPARISON: None HISTORY: 67-year-old male Hematuria CT DLP: 669.9 mGycm. Automated exposure control for dose reduction was used. TECHNIQUE: Contiguous axial scanning of the abdomen and pelvis without IV contrast. Coronal and sagit monica reconstructions performed. FINDINGS: LUNG BASES: Median sternotomy wires are present. Heart mildly enlarged. Dependent atelectasis in the lungs without pleural effusion. LIVER/GB: Liver mildly enlarged at 18.8 cm. No focal lesion seen. Small layering gallstones in the no ndistended gallbladder. PANCREAS: No significant abnormality is seen. SPLEEN: No significant abnormality is seen. Small hilar splenule. ADRENALS: No significant abnormality is seen. KIDNEYS: Lateral cortical hypodensity measuring 2.5 cm and the right kidney. No nephrolithiasis on ei ther side. No hydronephrosis. BOWEL: There is a small hiatal hernia. No dilated small bowel, free fluid, or free air. There is mode rate stool burden. Redundant sigmoid colon. No pericolonic inflammatory change seen. LYMPH NODES: No significant abnormality is seen. OTHER: Tiny fatty umbilical hernia. Moderate atherosclerotic calcifications throughout the abdominal aorta and iliac arteries. Bilobed fusiform aneurysm infrarenal abdominal aorta. On sagittal series, t hese aneurysms measure up to 3.3 cm and 3.0 cm. Additional aneurysm right common iliac artery up to 1 .8 cm. PELVIS: Prostate gland is enlarged at 5.6 cm wide. Pelvic phleboliths. There is soft tissue impressin g on the base of the bladder. Bladder urine distended. No abnormal fluid collection in the pelvis. BONES: Facet arthropathy lower lumbar spine. Moderate degenerative disc disease L2-L3. IMPRESSION: 1. Prostatomegaly at 5.6 cm wide. Soft tissue impresses upon to the base of the bladder. Correlate f or symptoms of BPH. 2. Small hiatal hernia. 3. Moderate atherosclerotic calcifications. Consecutive fusiform aneurysms of the infrarenal abdomin al aorta measuring 3.3 cm and 3.0 cm. Additional fusiform aneurysm right common iliac artery at 1.8 c m.
[2022-09-29 16:57] VITALS: BP 146/90; RESP 61; TEMP 98.1
== END 2022-09-29 17:06 | disposition home or self-care (01) ==
LOC: EC 13:52
DX: I72.3 Aneurysm of iliac artery (principal); K44.9 Diaphragmatic hernia without obstruction or gangrene; N28.1 Cyst of kidney, acquired; N40.0 Benign prostatic hyperplasia without lower urinary tract symptoms; J44.9 Chronic obstructive pulmonary disease, unspecified; E78.5 Hyperlipidemia, unspecified; I25.10 Atherosclerotic heart disease of native coronary artery without angina pectoris; Z79.82 Long term (current) use of aspirin; Z79.899 Other long term (current) drug therapy
CPT/HCPCS: 74176; 81001; 99283

== ENCOUNTER → 2023-01-04 | Outpatient (CLI) | payer MEDICARE ==
[2023-01-04 17:52] LABS: ALT 34 U/L (10-49); AST 27 U/L (14-35); Chol/HDL Ratio 3.13 Ratio; LDL Cholesterol,Calculated 86.1 mg/dL (0.0-131.0)
== END | disposition home or self-care (01) ==
LOC: LABWHC1 07:27
PROVIDERS: ATTEND Internal Medicine Interventional Cardiology
DX: E78.2 Mixed hyperlipidemia (principal)
CPT/HCPCS: 36415; 80061; 84450; 84460

== ENCOUNTER → 2023-02-20 | Outpatient (CLI) | payer MEDICARE ==
[2023-02-20 10:50] LABS: HCT 45.6 % (39.6-50.0); HGB 15.3 d/dL (13.0-17.0); MCH 28.8 pg (27.0-32.0); MCHC 33.6 d/dL (32.0-37.0); MCV 85.9 FL (80.0-97.0); Mean Platelet Volume 10.5 FL (9.5-12.2); NRBC Per 100 WBC 0 X 10*3/uL (0.00-0.01); Platelet Count 219 X 10*3/uL (140-440); RBC 5.31 X 10*6/uL (4.40-5.60); RDW 12.7 % (11.5-14.5); WBC 5.42 X 10*3/uL (4.50-10.00)
[2023-02-20 11:33] LABS: ALT 32 U/L (10-49); AST 25 U/L (14-35); Albumin 4.7 d/dL (3.8-4.9); Albumin/Globulin Ratio 2.47 Ratio (1.60-3.17); Alkaline Phosphatase 50 U/L (41-126); BUN/Creat Ratio 13.33 Ratio (12.00-20.00); Carbon Dioxide 27.8 mmol/L (21.6-31.8); Chloride 103 mmol/L (96-109); Chol/HDL Ratio 2.39 Ratio; Globulin 1.9 d/dL (1.6-3.3); Glucose 103 mg/dL (70-110); LDL Cholesterol,Calculated 47.5 mg/dL (0.0-131.0); Potassium 4.7 mmol/L (3.5-5.5); Sodium 139 mmol/L (135-145); Total Bilirubin 1.4 mg/dL (0.3-1.2); Total Protein 6.6 d/dL (6.2-8.2)
== END | disposition home or self-care (01) ==
LOC: LABPAT 07:40
PROVIDERS: ATTEND Internal Medicine Interventional Cardiology
DX: Z01.812 Encounter for preprocedural laboratory examination (principal); E78.2 Mixed hyperlipidemia; R07.9 Chest pain, unspecified; R06.02 Shortness of breath
CPT/HCPCS: 80053; 80061; 85027

== ENCOUNTER 2023-03-01 06:17 | Day surgery (SDC) | payer MEDICARE ==
[~2023-03-01 06:17] MED LIST: ALPRAZolam 0.25 MG TAB PO PRN; ALPRAZolam 0.5 MG TAB PO PRN; ASPIRIN 325 MG TAB PO STA; NITROGLYCERIN SL TABS 0.4 MG TAB SUBLINGUAL PRN
[2023-03-01] MEDS ORDERED: SODIUM CHLORIDE 0.9% 1,000 ML IV ONE (06:32)
[2023-03-01] MEDS ORDERED: LIDOCAINE 1% INJ 10MG/ML (20 ML MDV) ONE (07:15)
[2023-03-01] MEDS ORDERED: VERAPAMIL 2.5 MG/ML 2 ML AMP ONE (07:15)
[2023-03-01] MEDS ORDERED: HEPARIN SODIUM 1,000 UN/ML (10ML VL) ONE (08:06)
[2023-03-01] MEDS ORDERED: fentaNYL (PF) 50 MCG/ML 2 ML AMP ONE (08:07)
[2023-03-01] MEDS ORDERED: fentaNYL (PF) 50 MCG/1 ML VIAL IVP ONE (08:12)
[2023-03-01] MEDS: LIDOCAINE 1% INJ 10MG/ML (20 ML MDV) SQ ONE ×2 (08:14→08:30)
[2023-03-01] MEDS ORDERED: VERAPAMIL SYRINGE (5 MG/10 ML) INTRAARTER ONE (08:17)
[2023-03-01] MEDS: HEPARIN SODIUM 1,000 UN/ML (10ML VL) IV ONE ×4 (08:35→09:40)
[2023-03-01] MEDS ORDERED: IOPAMIDOL-370 100ML BTL INJ ONE ×3 (08:48→09:39)
[2023-03-01] MEDS ORDERED: CLOPIDOGREL 75 MG TAB PO ONE (08:53)
[2023-03-01] MEDS ORDERED: CLOPIDOGREL 75 MG TAB ONE (08:53)
[2023-03-01] MEDS ORDERED: MIDAZOLAM 2 MG/2 ML VIAL IVP ONE (09:27)
[2023-03-01] MEDS ORDERED: ATROPINE SULFATE 0.1 MG/ML 10ML SYRINGE IV PRN (09:48)
[2023-03-01] MEDS ORDERED: ZOLPIDEM 5 MG TAB PO PRN (09:48)
[2023-03-01] MEDS ORDERED: RX INFO: IV CONTRAST WAS GIVEN 1 EACH MISC MISCELLANE PRN (09:48)
[2023-03-01] MEDS ORDERED: MAG HYDROX/AL HYDROX/SIMETH 30 ML CUP PO PRN (09:48)
[2023-03-01] MEDS ORDERED: NITROGLYCERIN SL TABS 0.4 MG TAB SUBLINGUAL PRN (09:48)
--- NOTE | 2023-03-01 09:59 | P.CARDCATH ---
Date of Procedure: 03/01/23 Description of Procedure: Cardiac Catheterization: The patient is a 67-year-old male with a known history of CAD status post CABG and PCI who presented with symptoms of progressive dyspnea on exertion and exertional chest discomfort. Recommendations were made regarding cardiac catheterization, the risks and the complications were discussed with the patient who is in full understanding and agreement. 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 Using Xylocaine Anesthesia and modified Seldinger technique, a 6-[place] sheath was introduced in the left radial artery . There was inability to advance the wire to the ascending aorta because of tortuosity, using micropuncture technique a 6-[place] sheath was introduced in the right femoral artery. Subsequently, selective coronary angiography was performed using a 5-Central African 4 bend Citlalli catheter. Multiple views of the coronary artery including hemiaxial views were obtained. The right Citlalli was used to cannulate the SVG to the diagonal branch. The 6-Central African pigtail catheter was used to cross the aortic valve and LVEDP was calculated. PCI: After removing the catheters a 6-Central African EBU 3.75 guiding catheter was introduced in the system and after cannulating the left main a 0.014 BMW J-wire was advanced in the proximal left circumflex and positioned distally. Attempts to advance a 2.5 x 12 mm Treck were unsuccessful. The balloon was removed and a 6- [place] guide liner with a 1.0 x 10 mm Sapphire balloon was advanced. The balloon was inflated at 10 andrew. Subsequently the 2.5 x 12 mm balloon was advanced into inflations at 8 andrew were done. After removing the balloon 2.5 x 12 mm Xience anabelle point was deployed at 16 andrew, after removing the balloon 3.0 x 15 mm Xience anabelle point stent was deployed proximal to the first one into the left main and dilated at 16 andrew. Subsequently a 2.75 x 12 mm NC Treck balloon was advanced and one inflation at 10 andrew in the overlap segment was done. After removing the wire images were obtained and revealed successful stenting. Following that, catheter and sheath were removed. Hemostasis was obtained with deployment of vascular band and an Angio-Seal in the right femoral artery . There was no immediate complication. Patient was returned to room in stable condition. Of note, the patient received a total of 7500 units of intravenous heparin as well as intra-arterial verapamil. He received an oral loading dose of clopidogrel. His ACT was followed. He had chest and throat discomfort that resolved at the end of the procedure. Findings: Fluoroscopy: Significant calcifications of the coronary arteries were noted Left main: As is a short sized vessel bifurcating to LAD and left circumflex, the left main is calcified and has 30-40% plaque distally LAD: The vessel is totally occluded at the ostium with no antegrade flow Left circumflex: This is a nondominant vessel giving rise to a very proximal first obtuse marginal branch that has a 99% stenosis in the proximal segment after the takeoff of the first obtuse marginal branch there is a 95% eccentric lesion prior to the takeoff of the second obtuse marginal branch RCA: This is a large dominant vessel bifurcating distally into PDA and PLV the stented segment in the proximal and distal areas are patent with a 30-40% in- stent restenosis in the distal stent prior to the bifurcation SVG to the diagonal branch: the proximal and distal anastomotic sites are patent, there is retrograde flow into the LAD there is no evidence of significant obstructive disease. Left Ventriculogram: Not performed Hemodynamics: There was no gradient across the aortic valve , LVEDP was 8-12 mmHg Conclusion: 1. Calcified coronary arteries 2. Chronically occluded ostial LAD 3. Severe stenosis in the first OM and proximal left circumflex 4. Moderate in-stent restenosis in the RCA 5. Patent saphenous vein graft to the diagonal branch with retrograde flow into the LAD 6. Successful stenting of the proximal left circumflex with reduction of stenosis from 95% to less than 5%. There was slow flow in the first OM. Recommendations: The patient will continue on dual antiplatelet treatment with aspirin and clopidogrel for 6 months without any disruption in addition to aggressive coronary risks modification attempting to maintain an LDL of less than 70 mg/dL. The findings and the recommendations were discussed with the patient and the family and they were in full understanding and agreement. Duration of sedation is 85 minutes.
[2023-03-01] MEDS ORDERED: SODIUM CHLORIDE 0.9% 1,000 ML in EMPTY BAG 1 BAG IV SCH (10:00)
[2023-03-01] MEDS ORDERED: ACETAMINOPHEN TAB 500 MG TAB PO ONE (10:36)
[2023-03-01] MEDS: SODIUM CHLORIDE 0.9% 1,000 ML in EMPTY BAG 1 BAG IV SCH ×3 (14:25→21:23)
[2023-03-01] MEDS ORDERED: ACETAMINOPHEN TAB 325 MG TAB PO PRN (16:32)
[2023-03-01] MEDS: NITROGLYCERIN OINT 1 INCH/GM PACKET TOPICAL SCH ×2 (16:41→21:13)
[2023-03-01] MEDS ORDERED: PANTOPRAZOLE 40 MG TABLET PO SCH (21:00)
[2023-03-01] MEDS ORDERED: atenoloL 25 MG TAB PO SCH (21:00)
[2023-03-01] MEDS: ATORVASTATIN 20 MG TAB PO SCH ×2 (21:15→21:24)
--- NOTE | 2023-03-02 07:27 | P.PN ---
Subjective Progress Note Date: 03/02/23 PROGRESS NOTE The patient is a 67-year-old male with known history of hypertension and hyperlipidemia, status post CABG who has been complaining of progressive exertional chest discomfort and dyspnea, underwent cardiac catheterization and was found to have severe stenosis in the left circumflex, underwent stenting of that vessel. He's feeling better this morning. He has no significant chest discomfort and his breathing is stable. He is in sinus mechanism and has occasional PVCs. Hemodynamically he stable. Medications: Aspirin, Plavix 75 mg daily, Tenormin 25 mg daily, Lipitor 20 mg daily, isosorbide mononitrate 60 mg daily, lisinopril 2.5 mg daily,Ezetimibe 10 milligrams daily PHYSICAL EXAMINATION: Blood pressure 120/70 heart rate 60 LUNGS: Clear to auscultation HEART: Regular rate and rhythm, S1, S2. No S3. Systolic ejection murmur ABDOMEN: Soft, nontender, no organomegaly EXTREMETIES: No edema, right groin no hematoma, left radial pulse intact. LAB: EKG showed sinus mechanism with occasional PVCs and no acute ST segment changes IMPRESSION: 1. Status post stenting of the left circumflex 2. Status post CABG 3. Hypertension 4. Hyperlipidemia PLAN: 1. Increase physical activity 2. Discharged home today 3. And follow-up as an outpatient 4. Dual antiplatelets treatment for 6 months Objective - Vital Signs Vital signs: Vital Signs Temp 98.2 F 03/02/23 02:00 Pulse 63 03/02/23 02:00 Resp 12 03/02/23 02:00 BP 120/73 03/02/23 02:00 Pulse Ox 100 03/02/23 02:00 FiO2 Intake & Output 03/01/23 03/02/23 03/02/23 18:59 06:59 18:59 Intake Total 840 118 Output Total 400 Balance 440 118 Weight 79.7 kg Intake: IV 600 Oral 240 118 Output: Urine 400 Other: Voiding Method Urinal Urinal # Voids 1
[2023-03-02 08:55] LABS: African American GFR (CKD) >90 (>60 ml/min/1.73 sqM); Anion Gap 8 mmol/L; Blood Urea Nitrogen 13 mg/dL (9-20); Calcium 9.5 mg/dL (8.4-10.2); Carbon Dioxide 27 mmol/L (22-30); Chloride 104 mmol/L (98-107); Glucose 120 mg/dL (74-99); Non-African American GFR(CKD) >90 (>60 ml/min/1.73 sqM); Potassium 4.1 mmol/L (3.5-5.1); Sodium 139 mmol/L (137-145)
[2023-03-02] MEDS ORDERED: CLOPIDOGREL 75 MG TAB PO SCH (09:00)
[2023-03-02] MEDS ORDERED: ASPIRIN 81 MG PO SCH (09:00)
[2023-03-02] MEDS ORDERED: EZETIMIBE 10 MG TAB PO SCH (09:00)
[2023-03-02] MEDS ORDERED: ISOSORBIDE MONONITRATE ER 60 MG TAB.ER.24H PO SCH (09:00)
[2023-03-02 10:02] VITALS: BP 117/70; PULSE 61; RESP 16; TEMP 98.1
== END 2023-03-02 11:05 | disposition home or self-care (01) ==
LOC: CATHCVL 06:17 → 4SSUR 08:56 → CATHCVL 08:56 → 6NMEDSUR 09:30 → CATHCVL 03-02 11:05
PROVIDERS: ATTEND Internal Medicine Interventional Cardiology
DX: I25.10 Atherosclerotic heart disease of native coronary artery without angina pectoris (principal); E78.5 Hyperlipidemia, unspecified; I10 Essential (primary) hypertension; Z79.02 Long term (current) use of antithrombotics/antiplatelets; Z79.82 Long term (current) use of aspirin; Z79.899 Other long term (current) drug therapy; Z95.1 Presence of aortocoronary bypass graft; Z95.5 Presence of coronary angioplasty implant and graft
CPT/HCPCS: 93459; 80048; C1769 ×4; C9600; C1760; C1887 ×2; C1894 ×2; C1725 ×3; C1874 ×2; J2250; J2001; J1644; Q9967; J3010

== ENCOUNTER → 2023-10-24 | Outpatient (CLI) | payer MEDICARE ==
--- NOTE | 2023-10-24 16:04 | XR ---
EXAMINATION TYPE: XR knee complete LT DATE OF EXAM: 10/24/2023 COMPARISON: None HISTORY: Pain TECHNIQUE: 3 view left knee FINDINGS: Joint spaces are preserved. No joint effusion is evident. Extensive vascular calcification is noted. Surgical clips are present medially within the distal thigh. No acute fracture or dislocati on is evident. IMPRESSION: 1. No acute osseous abnormalities left knee
== END | disposition home or self-care (01) ==
LOC: RADXRMAIN 10:31
PROVIDERS: ATTEND Nurse Practitioner Family
DX: M25.562 Pain in left knee (principal)

== ENCOUNTER → 2023-11-28 | Outpatient (CLI) | payer MEDICARE | END | disposition home or self-care (01) | LOC: LABPRL 09:00 | PROVIDERS: ATTEND Family Medicine | DX: R74.01 Elevation of levels of liver transaminase levels (principal) | CPT/HCPCS: 80076 ==

== ENCOUNTER → 2023-12-29 | Outpatient (CLI) | payer MEDICARE ==
--- NOTE | 2024-01-02 23:47 | MR ---
EXAMINATION TYPE: MR knee RT wo con DATE OF EXAM: 12/29/2023 COMPARISON: NONE HISTORY: Right knee pain x 4 mos, S/P climbing hill, hx of old injury. TECHNIQUE: Multiplanar, multisequence images of the knee is performed without IV contrast. FINDINGS: MEDIAL MENISCUS: Linear and triangular shaped increased signal posterior horn likely abuts the inferi or articular surface. LATERAL MENISCUS: Linear signal posterior horn seen best on coronal images likely abuts the inferior articular surface. CRUCIATE LIGAMENTS: The anterior and posterior cruciate ligaments are intact and unremarkable. COLLATERAL LIGAMENTS: The medial collateral ligament is intact and unremarkable. There is some increa sed signal and disruption of portions of the lateral collateral ligament complex. EXTENSOR MECHANISM: Visualized quadriceps and patellar tendons are intact. EFFUSION: No significant suprapatellar joint effusion. Mild edema and superior aspect of Hoffa's fat pad POPLITEAL CYST: [id number] sized popliteal/lloyd cyst. TRICOMPARTMENT SPACES: Mild to moderate tricompartment joint space loss without significant spurring. CARTILAGE: Some chondromalacia patella with thinning of articular cartilage along posterior patellar pole. Focal fissuring in the lateral aspect of the distal medial femoral condyle sagittal image 11. BONE MARROW SIGNAL: Tiny T2 hyperintense focus posterior patellar pole sagittal image 15. OTHER: Heterogeneous prominence of the visualized popliteal vein. IMPRESSION: 1. Mild/moderate tricompartment degenerative changes are present as detailed above. 2. Suspect old LCL complex injury. 3. At least intrasubstance suspected full-thickness tear posterior horn of medial meniscus. 4. Full-thickness tear posterior horn of lateral meniscus. 5. Kaexx-rh-vynfskdp sized popliteal cyst. 6. Mild edema superior aspect Hoffa's fat pad raises concern for fat pad impingement syndrome. 7. Possible DVT of the popliteal vein above the knee partially imaged. Advise right lower extremity v ascular ultrasound follow-up. [facility], , 01/02/2024 11:44 PM
--- NOTE | 2024-01-03 00:25 | MR ---
EXAMINATION TYPE: MR knee LT wo con DATE OF EXAM: 12/29/2023 COMPARISON: Left knee x-ray October 24, 2023 HISTORY: Left knee pain and swelling x 4 mos, S/P climbing hill. TECHNIQUE: Multiplanar, multisequence images of the knee is performed without IV contrast. FINDINGS: MEDIAL MENISCUS: Medial extrusion of medial meniscus on coronal images. Abnormal signal central body and posterior horn with vertical component extending to articular surface sagittal image 29. LATERAL MENISCUS: Anterior and posterior horns are intact without tear. CRUCIATE LIGAMENTS: The anterior and posterior cruciate ligaments are intact and unremarkable. COLLATERAL LIGAMENTS: The medial collateral ligament and lateral collateral ligament complex are inta ct. Fluid signal surrounds the medial collateral ligament. EXTENSOR MECHANISM: Visualized quadriceps and patellar tendons are intact. EFFUSION: There is large size suprapatellar joint effusion. POPLITEAL CYST: There is moderate size popliteal/lloyd cyst with ill-defined fluid superiorly suggest ing leak. TRICOMPARTMENT SPACES: Moderate tricompartment joint space loss. Mild spurring medial tibiofemoral co mpartment. CARTILAGE: Cartilaginous loss medial tibiofemoral compartment. No significant chondromalacia patella. BONE MARROW SIGNAL: Marked heterogeneous diminished T1 and increased T2 signal medial tibial femoral compartment greatest involving the distal medial femoral condyle. OTHER: Prominent atherosclerotic change in the popliteal artery. IMPRESSION: 1. Moderate to severe tricompartment degenerative changes with most prominent finding medial tibiofem oral compartment where significant abnormal bone marrow edema is noted greatest involving the distal medial femoral condyle. 2. [id number] MCL sprain injury. 3. Full-thickness tear posterior horn of medial meniscus. 4. Moderate-sized suprapatellar joint effusion. 5. Moderate-sized leaking popliteal cyst. [facility], , 01/03/2024 12:23 AM
== END | disposition home or self-care (01) ==
LOC: RADMRIMAIN 09:41
PROVIDERS: ATTEND Orthopaedic Surgery
DX: S83.412A Sprain of medial collateral ligament of left knee, initial encounter (principal); S83.242A Other tear of medial meniscus, current injury, left knee, initial encounter; S83.282A Other tear of lateral meniscus, current injury, left knee, initial encounter; M17.0 Bilateral primary osteoarthritis of knee; M23.8X1 Other internal derangements of right knee; M23.92 Unspecified internal derangement of left knee; M71.22 Synovial cyst of popliteal space [Baker], left knee; M71.21 Synovial cyst of popliteal space [Baker], right knee; M25.462 Effusion, left knee; M25.461 Effusion, right knee; I11.9 Hypertensive heart disease without heart failure; Z95.818 Presence of other cardiac implants and grafts; X58.XXXA Exposure to other specified factors, initial encounter

== ENCOUNTER → 2024-02-11 | Outpatient (CLI) | payer MEDICARE ==
[2024-02-11 13:22] LABS: Partial Thromboplastin Time 24.2 sec (22.0-30.0)
[2024-02-11 15:47] LABS: ALT 39 U/L (10-49); AST 31 U/L (14-35); Albumin 4.5 g/dL (3.8-4.9); Albumin/Globulin Ratio 2.37 Ratio (1.60-3.17); Alkaline Phosphatase 61 U/L (41-126); BUN/Creat Ratio 13.25 Ratio (12.00-20.00); Blood Urea Nitrogen 10.6 mg/dL (9.0-27.0); Calcium 9.8 mg/dL (8.7-10.3); Carbon Dioxide 27.6 mmol/L (21.6-31.8); Chloride 101 mmol/L (96-109); Globulin 1.9 g/dL (1.6-3.3); Glucose 105 mg/dL (70-110); Potassium 5.4 mmol/L (3.5-5.5); Sodium 136 mmol/L (135-145); Total Bilirubin 0.7 mg/dL (0.3-1.2); Total Protein 6.4 g/dL (6.2-8.2)
[2024-02-11 17:17] LABS: HCT 43.4 % (39.6-50.0); HGB 14.3 g/dL (13.0-17.0); MCH 28.7 pg (27.0-32.0); MCHC 32.9 g/dL (32.0-37.0); Mean Platelet Volume 10.7 FL (9.5-12.2); NRBC Per 100 WBC 0 X 10*3/uL (0.00-0.01); Platelet Count 227 X 10*3/uL (140-440); RBC 4.99 X 10*6/uL (4.40-5.60)
[2024-02-11 18:21] LABS: Prothrombin Time 10.8 sec (10.0-12.5)
== END | disposition home or self-care (01) ==
LOC: LABPAT 12:35
PROVIDERS: ATTEND Orthopaedic Surgery
CPT/HCPCS: 80053; 83036; 85027; 85610; 85730; 87070

== ENCOUNTER → 2024-02-11 | Outpatient (CLI) | payer MEDICARE ==
--- NOTE | 2024-02-11 13:15 | CT ---
INDICATION: Patient age:Male; 68 years old; Reason for study: [facility] Protocol for left knee replacement, M25.562 L knee pain; [facility]. COMPARISON: MR left knee 12/29/2023, left knee radiographs 10/24/2023 TECHNIQUE: Thin section axial CT imaging of the entire left lower extremity was performed per [facility] protocol, wit hout the administration of IV contrast. Additional axial images of the bilateral hips and ankles with other knee were also obtained. Reformatted images in coronal and sagittal views obtained. FINDINGS: There is no evidence of acute fracture or dislocation. The hips are grossly unremarkable. Prostatomegaly measuring 5.1 cm in transverse dimension with media n lobe hypertrophy which indents upon the urinary bladder base. The left knee demonstrates mild osteoarthritic changes with tricompartmental joint space narrowing wi th subchondral cystic changes involving the medial tibiofemoral joint. Small joint effusion. Incident al Katz cyst measuring grossly 2.4 x 1.6 x 5.2 cm. The ankles grossly unremarkable. The visualized soft tissues appear grossly unremarkable within the limits of unenhanced CT. Atherosclerotic calcification of the arterial vasculature. IMPRESSION: [facility] protocol for left knee joint replacement. [facility], , 02/11/2024 1:13 PM
== END | disposition home or self-care (01) ==
LOC: RADCTMAIN 12:11
PROVIDERS: ATTEND Orthopaedic Surgery

== ENCOUNTER 2024-02-29 13:18 | Day surgery (SDC) | payer MEDICARE ==
[2024-02-25 11:58] VITALS: BMI 25.8
[~2024-02-29 13:18] MED LIST changes: -ALPRAZolam 0.25 MG TAB PO PRN; -ALPRAZolam 0.5 MG TAB PO PRN; -ASPIRIN 325 MG TAB PO STA; +HYDROmorphone 0.5 MG/0.5 ML SYRINGE IVP PRN; -NITROGLYCERIN SL TABS 0.4 MG TAB SUBLINGUAL PRN; +TRANEXAMIC 1,000 MG/100ML-NACL 1,000 MG in SALINE 1 100ML.BAG IV PRN; +TRANEXAMIC 1,000 MG/100ML-NACL 1,000 MG in SALINE 1 100ML.BAG IVPB PRN
[2024-02-29] MEDS: DOCUSATE 100 MG CAP PO PRN (14:04)
[2024-02-29] MEDS: oxyCODONE ER 10 MG TAB.ER.12H PO PRN (14:05)
[2024-02-29] MEDS: ACETAMINOPHEN TAB 500 MG TAB PO PRN (14:05)
[2024-02-29] MEDS: IV FLUID CONTINUATION 1,000 ML IV ONE (14:10)
[2024-02-29] MEDS: LACTATED RINGERS 1,000 ML IV SCH (14:11)
[2024-02-29] MEDS: ONDANSETRON 4 MG/2 ML VIAL IVP PRN (14:12)
[2024-02-29] MEDS: KETOROLAC 15 MG/ML 1 ML VIAL IVP PRN (14:12)
[2024-02-29] MEDS: DEXAMETHASONE SOD PHOSPHATE 10 MG/ML 1 ML VIAL IV PRN (14:12)
[2024-02-29] MEDS: FAMOTIDINE 20 MG/2 ML VIAL IVP PRN (14:12)
[2024-02-29 14:18] LABS: Glucose,Whole Blood 92 mg/dL (70-110)
[2024-02-29] MEDS: MIDAZOLAM 2 MG/2 ML VIAL IV PRN (14:26)
--- NOTE | 2024-02-29 14:48 | P.ANPRN ---
Procedure Note - Anesthesia - Nerve Block Performed Left Adductor Canal Single Time Out Performed: Yes ([id number]) Date of Procedure: 02/29/24 Procedure Start Time: 14:28 Procedure Stop Time: 14:31 Location of Patient: PreOp Indication: Acute Post-Operative Pain, Requested by Surgeon Specifically requested for management of pain by DrMikie: Ramses Copeland Sedation Type: Sedate with meaningful contact maintained Preparation: Sterile Prep Position: Supine Catheter: None Needle Types: Pajunk Needle Gauge: 21 Ultrasound used to visualize needle placement: Yes Ultrasound used to observe medication spread: Yes Injectate: 0.5% Ropivacaine (see comment for volume) (15cc+10cc nacl pf) Blood Aspirated: No Pain Paresthesia on Injection Noted: No Resistance on Injection: Normal Image Stored and Saved: Yes Events: Uneventful and Well Tolerated
--- NOTE | 2024-02-29 14:48 | P.ANPRN ---
Procedure Note - Anesthesia - Nerve Block Performed Left iPack Single Time Out Performed: Yes ([id number]) Date of Procedure: 02/29/24 Procedure Start Time: 14:32 Procedure Stop Time: 14:35 Location of Patient: PreOp Indication: Acute Post-Operative Pain, Requested by Surgeon Specifically requested for management of pain by DrMikie: Ramses Copeland Sedation Type: Sedate with meaningful contact maintained Preparation: Sterile Prep Position: Supine Catheter: None Needle Types: Pajunk Needle Gauge: 21, Other (see comment) Ultrasound used to visualize needle placement: Yes Ultrasound used to observe medication spread: Yes Injectate: 0.5% Ropivacaine (see comment for volume) (15cc+10cc nacl pf) Blood Aspirated: No Pain Paresthesia on Injection Noted: No Resistance on Injection: Normal Image Stored and Saved: Yes Events: Uneventful and Well Tolerated
[2024-02-29] MEDS ORDERED: LIDOCAINE 1% INJ 10MG/ML (20 ML MDV) ONE (15:05)
[2024-02-29] MEDS ORDERED: PROPOFOL 10 MG/ML 20 ML VIAL IV ONE (15:05)
[2024-02-29] MEDS ORDERED: HYDROmorphone (PF) 1 MG/ML ONE (15:05)
[2024-02-29] MEDS ORDERED: TRANEXAMIC 1,000 MG/100ML-NACL PREMIX BAG ONE (15:05)
[2024-02-29] MEDS ORDERED: NEOSTIGMINE 1 MG/ML 10 ML VIAL ONE (15:05)
[2024-02-29] MEDS ORDERED: GLYCOPYRROLATE 0.2 MG/ML 2 ML VIAL ONE (15:05)
[2024-02-29] MEDS ORDERED: SODIUM CHLORIDE 0.9% (PF) 10 ML VIAL ONE (15:05)
[2024-02-29] MEDS ORDERED: ROPIVACAINE 5 MG/ML 30 ML VIAL ONE (15:05)
[2024-02-29] MEDS ORDERED: ROCURONIUM 10 MG/ML (5 ML VIAL) IV ONE (15:05)
[2024-02-29] MEDS ORDERED: MIDAZOLAM 2 MG/2 ML VIAL ONE (15:05)
[2024-02-29] MEDS ORDERED: SUCCINYLCHOLINE CHLORIDE 200 MG/10 ML VIAL IV ONE (15:05)
[2024-02-29] MEDS ORDERED: fentaNYL (PF) 50 MCG/ML 2 ML AMP ONE (15:05)
[2024-02-29] MEDS ORDERED: ePHEDrine 50 MG/ML 1 ML VIAL ONE (15:05)
[2024-02-29] MEDS: ROPIVACAINE/EPI/CLONIDINE/KET 50 ML SYRINGE MISCELLANE PRN (15:42)
[2024-02-29] MEDS: LACTATED RINGERS 1,000 ML IV ONE (16:38)
[2024-02-29] MEDS ORDERED: bisacodyL 10 MG SUPP RECTAL PRN (16:54)
[2024-02-29] MEDS ORDERED: ONDANSETRON 4 MG/2 ML VIAL IVP PRN (16:54)
[2024-02-29] MEDS ORDERED: HYDROmorphone 0.5 MG/0.5 ML SYRINGE IVP PRN (16:54)
[2024-02-29] MEDS ORDERED: MAGNESIUM HYDROXIDE 2,400 MG/30 ML CUP PO PRN (16:54)
[2024-02-29] MEDS ORDERED: hydrOXYzine pamoate 25 MG CAP PO PRN (16:54)
[2024-02-29] MEDS ORDERED: NALOXONE 0.4 MG/ML 1 ML VIAL IV PRN (16:54)
--- NOTE | 2024-02-29 16:54 | P.OP ---
Date of Procedure: 02/29/24 Preoperative Diagnosis: 1. Severe left knee osteoarthritis 2. Heart disease Postoperative Diagnosis: Same Procedure(s) Performed: 1. Left total knee arthroplasty 2. Computer assisted musculoskeletal navigation using CT/MRI images Implants: 1. [place] [employer] CR Femur Size #6 2. [place] [employer] [place] Tibial Base Size #5 3. [place] CS poly Size #5, 9-mm 4. [place] Tri[employer]lon all poly patella, Size #35 Anesthesia: YESSICA, regional Surgeon: Ramses Copeland Account Planner #1: Chip Rodriguez Estimated Blood Loss (ml): 100 IV fluids (ml): 800 Pathology: none sent Condition: stable Disposition: PACU Indications for Procedure: The patient presented to my office with severe knee pain. He was initially managed non-surgically, but had worsening left knee pain. His xrays showed mild OA, but he had an MRI that showed more severe arthritic changes. Due to his pain and failure to improve with non-surgical treatment, he requested surgery. We discussed both partial and total knee replacements. Due to his age, medical history and diffuse knee pain, I thought a total knee would be MOST predictable for him. I met with the patient preoperatively in the office setting and discussed treatment of their symptomatic knee arthritis. They failed a long course of nonsurgical treatment and elected to proceed with an elective total knee replacement. I discussed the potential risks and complications at length and gave them ample time to ask questions. Risks discussed included: risks from anesthesia, superficial site surgical infection, acute and/or chronic periprosthetic joint infection, delayed wound healing, drainage, wound necrosis, instability, stiffness, stiffness requiring manipulation and/or revision surgery, damage to local blood vessels or nerves, aseptic loosening of the imp lants, extensor mechanism issues including disruption, patellar maltracking, avascular necrosis etc., continued or worsened knee pain, generalized dissatisfaction with surgical outcome, need for revision surgery, an inability to regain preinjury level of function, DVT, PE, other medical complications, and possibly loss of life or limb. The patient voiced their understanding that while these are the most common complications other less common complications are possible. They provided both their verbal and written consent to go forward with surgery. Operative Findings: Severe medial compartment OA, moderate lateral and patellofemoral OA. Description of Procedure: The patient was identified in preoperative holding and the correct operative extremity was verified and marked with a marker. I reviewed the consent form with the patient at length. All of their questions were answered. The patient was given a block by anesthesia. They were then brought back to the operating room. They were transferred onto the operating room table where a general anesthetic, preoperative antibiotics, and tranexamic acid were administered by anesthesia. A tourniquet was applied to the proximal aspect of the operative extremity. The contralateral extremity was padded under the heel and secured to the operating room table with a nonsterile blue towel and tape. The ipsilateral arm was carefully draped across the patient's chest and secured with a pillow and foam. A post was applied over the lateral aspect of the ipsilateral thigh and a bolster was placed under the ipsilateral foot. I verified that the operative extremity was stable and the knee was flexed to 90. The operative extremity was then placed in a leg anderson, nonsterile drapes were applied, and the extremity was prepped and draped sterilely in the standard sterile fashion. Prior to starting surgery timeout was performed identifying the correct patient, operative extremity, and procedure. The leg was then elevated, exsanguinated with an Esmarch bandage, and the tourniquet was inflated. An anterior midline incision was made sharply with a scalpel. Once I had dissec nelly deep to the superficial fascial layer medial and lateral flaps were elevated. A medial parapatellar arthrotomy was created. Upon opening the knee joint there were diffuse arthritic changes in all 3 compartments. The anterior horn of the medial meniscus were sharply released and a medial release was performed around the posterior medial corner of the knee to facilitate retractor placement. The fat pad was excised with electrocautery. The patella was found to be severely arthritic and a provisional cut was made with a sagittal saw to facilitate mobilization of the extensor mechanism during the procedure. Remnants of the ACL and PCL were then excised from the notch. 4 mm pins were then placed within the incision in the medial distal femur and proximal tibia. Arrays were applied to the pins and I verified they were completely tightened. The knee was then registered with the Enohm robot and manipulations in implant position were made to balance the knee and opitmize implant position. Using the Enohm robotic saw all cuts were made in accordance with our plan. After all bony fragments had been removed the cuts were verified with the planar probe. The tibia was then subluxed forward and sized. The knee was brought into flexion and a lamina associate dean of students was placed to allow removal of the meniscal remnants both medially and laterally as well as posterior osteophytes. Local anesthetic was then infiltrated around the joint capsule. Trial implants were then placed within the knee. Range of motion and collateral ligament tension was then evaluated. Adjustments in implant size and position were then made accordingly. Once the knee was felt to be appropriately balanced the Deniz pins were removed. The patella was then recut, sized, and punched. A trial patellar button was then placed. With the trial components in place, the patella tracked midline. The femur was then drilled and the trial component removed. The trial tibial component was then appropriately rotated, pinned, and prepared for the keel. All trial components were then removed from the knee. The knee was thoroughly irrigated with pulsatile lavage. Cement was prepared via vacuum mixing in a bowl on the back table. I then hand pressurized cement into the femur and tibia and placed the implants beginning with the tibial base tray and poly liner, femoral component, and finally the patellar button. All extruded cement was removed including from the pin sites. Once the cement had hardened the knee was evaluated one final time with the final polyethylene liner in place. The knee had full extension and flexion and felt stable to varus and valgus stress throughout the arc of motion. The tourniquet was released and with the tourniquet down the patella tracked midline. All bleeders were controlled with electrocautery. The knee was then soaked for 3 minutes with a dilute Betadine soak. The knee was thoroughly irrigated using 3 L of sterile saline and pulsatile lavage. The extensor mechanism was then reapproximated using pop off Vicryl sutures followed by a running barbed suture. The knee was then closed in layers with a 0 strata fix for the deep fascial layer, 2-0 strata fix for the superficial subcutaneous layer and Monocryl and Steri-Strips for the skin. A sterile dressing was applied. I verified that all instrument, sponge, and sharp counts were correct. The patient was then transferred off the operating room table, extubated, and brought to recovery having tolerated the procedure well. Chip Rodriguez PA-C was required as a skilled human resources executive assistant for patient position ing, draping, exposure, retraction, closure of wound and application of dressing PLAN: The patient can weight-bear as tolerated on the operative extremity. DVT prophylaxis with aspirin 81 mg twice a day based on preoperative risk stratification. Internal medicine for perioperative medical management. 2 doses of post-operative antibiotics. Physical therapy for gait training. Follow-up in the office in 2 weeks for wound check and x-rays of the knee including an AP and lateral.
--- NOTE | 2024-02-29 18:07 | XR ---
EXAMINATION TYPE: XR knee limited LT DATE OF EXAM: 02/29/2024 5:22 PM COMPARISON: None. CLINICAL INDICATION: Male, 68 years old with history of Evaluation for Postop abnormality and alignme nt, TECHNIQUE: 2 view(s) obtained. FINDINGS: Tibial and femoral components in place. No acute fractures are evident. Vascular calcification is omid dent. Postsurgical soft tissue changes are evident. IMPRESSION: 1. No acute fractures or dislocations [facility], , 02/29/2024 6:05 PM
[2024-02-29] MEDS: SODIUM CHLORIDE 0.9% 1,000 ML IV SCH (18:42)
[2024-02-29] MEDS: SENNOSIDES-DOCUSATE SODIUM 1 EACH TAB PO SCH (20:15)
[2024-02-29] MEDS: ASPIRIN 81 MG PO SCH (20:15)
[2024-02-29] MEDS: atenoloL 25 MG TAB PO SCH (22:13)
[2024-02-29] MEDS: ATORVASTATIN 20 MG TAB PO SCH (22:13)
[2024-03-01] MEDS: HYDROcodone/APAP 5-325MG 1 EACH TAB PO PRN (00:54)
[2024-03-01] MEDS: PANTOPRAZOLE 40 MG TABLET PO SCH (06:44)
[2024-03-01] MEDS: ISOSORBIDE MONONITRATE ER 30 MG TAB.ER.24H PO SCH (08:07)
[2024-03-01] MEDS: EZETIMIBE 10 MG TAB PO SCH (08:07)
--- NOTE | 2024-03-01 08:30 | P.DS ---
Providers Date of admission: 02/29/2024 Attending physician: Ramses Copeland Consults: 02/29/24 16:54 Consult Physician Routine Consulting Provider: Sherri Guerra Consult Reason/Comments: medical management Do you want consulting provider notified?: Yes Primary care physician: Jemma Ochoa [facility] Course: The patient is a very pleasant 68-year-old male who was admitted under my care yesterday. He underwent an uncomplicated total knee replacement. Following surgery he was transferred to the orthopedic floor. He was given 2 doses of postoperative antibiotics. He was transitioned from IV to oral pain medication. I saw the patient on postoperative day #1 and he was doing well. His dressing was intact. He had mild swelling in his thigh and calf. His leg is warm and well perfused. He had a palpable dorsalis pedis pulse. Femoral nerve function was intact. He is able to actively plantarflex and dorsiflex his ankle and his toes. Internal medicine was consulted for perioperative medical management. The patient worked with physical therapy. He did well and was ultimately cleared for discharge home. Patient Condition at Discharge: Good Plan - Discharge Summary Discharge Rx Participant: Yes New Discharge Prescriptions: New Aspirin [Adult Low Dose Aspirin EC] 81 mg PO BID #60 tab Docusate [Colace] 100 mg PO BID #60 capsule Omeprazole 40 mg PO DAILY #30 cap Ondansetron [Zofran] 4 mg PO Q8HR PRN #20 tab PRN Reason: Nausea No Action Cholecalciferol [Vitamin D3 (25 Mcg = 1000 Iu)] 50 mcg PO W/SUPPER Aspirin EC [Ecotrin Low Dose] 81 mg PO W/SUPPER lisinopriL 2.5 mg PO HS Simvastatin 40 mg PO HS Ezetimibe [Zetia] 10 mg PO QAM Omeprazole 40 mg PO BID Multivitamins, Thera [Multivitamin (formulary)] 1 tab PO W/SUPPER atenoloL 25 mg PO HS Isosorbide Mononitrate ER [Imdur] 30 mg PO QAM Ibuprofen [Motrin Ib] 200 mg PO DIRECTED PRN PRN Reason: Headache Acetaminophen Tab [Tylenol Tab] 500 - 1,000 mg PO Q4-6H PRN PRN Reason: Pain Discharge Medication List Aspirin EC [Ecotrin Low Dose] 81 mg PO W/SUPPER 08/07/21 [History] Cholecalciferol [Vitamin D3 (25 Mcg = 1000 Iu)] 50 mcg PO W/SUPPER 08/07/21 [History] Multivitamins, Thera [Multivitamin (formulary)] 1 tab PO W/SUPPER 08/07/21 [History] Simvastatin 40 mg PO HS 08/07/21 [History] atenoloL 25 mg PO HS 08/07/21 [History] lisinopriL 2.5 mg PO HS 08/07/21 [History] Ezetimibe [Zetia] 10 mg PO QAM 02/26/23 [History] Ibuprofen [Motrin Ib] 200 mg PO DIRECTED PRN 02/26/23 [History] Isosorbide Mononitrate ER [Imdur] 30 mg PO QAM 02/26/23 [History] Omeprazole 40 mg PO BID 02/26/23 [History] Acetaminophen Tab [Tylenol Tab] 500 - 1,000 mg PO Q4-6H PRN 02/25/24 [History] Aspirin [Adult Low Dose Aspirin EC] 81 mg PO BID #60 tab 03/01/24 [Rx] Docusate [Colace] 100 mg PO BID #60 capsule 03/01/24 [Rx] Omeprazole 40 mg PO DAILY #30 cap 03/01/24 [Rx] Ondansetron [Zofran] 4 mg PO Q8HR PRN #20 tab 03/01/24 [Rx] Follow up Appointment(s)/Referral(s): Ramses Copeland MD [Medical Doctor] - 2 Weeks Activity/Diet/Wound Care/Special Instructions: 1. Weight-bear as tolerated on your operative extremity unless instructed otherwise. Use a walker or other assistive device to ambulate. 2. Leave surgical dressing in place. If your dressing becomes saturated with blood, there is drainage, or the dressing becomes loose please contact the office. 3. It is okay to shower with your surgical dressing, but do not submerge in water (no hot tubs, bath's, swimming etc.) 4. Make sure to take her blood clot prevention medication as prescribed (aspirin, Eliquis, Xarelto, and Plavix are commonly prescribed medications for blood clot prevention) 5. While taking [place] or Percocet for pain make sure you're taking a stool softener (Colace) and drink lots of water. 6. Keep all follow-up appointments as scheduled. You will usually be seen in 1-2 weeks following surgery. 7. Please contact the office with any questions or concerns [phone] Discharge Disposition: HOME WITH HOME HEALTH SERVICES
[2024-03-01] MEDS: HYDROcodone/APAP 10-325MG 1 EACH TAB PO PRN (09:45)
[2024-03-01 09:50] LABS: ALT 27 U/L (10-49); AST 19 U/L (14-35); Alkaline Phosphatase 45 U/L (41-126); BUN/Creat Ratio 21.14 Ratio (12.00-20.00); Blood Urea Nitrogen 14.8 mg/dL (9.0-27.0); Calcium 8.9 mg/dL (8.7-10.3); Carbon Dioxide 23.8 mmol/L (21.6-31.8); Chloride 100 mmol/L (96-109); Globulin 1.6 g/dL (1.6-3.3); Glucose 122 mg/dL (70-110); Potassium 4.3 mmol/L (3.5-5.5); Sodium 134 mmol/L (135-145); Total Bilirubin 0.8 mg/dL (0.3-1.2); Total Protein 5.6 g/dL (6.2-8.2)
[2024-03-01 10:28] VITALS: BP 146/88; PULSE 65; RESP 17; TEMP 97.6
--- NOTE | 2024-03-01 13:08 | P.CONS ---
History of Present Illness - Reason for Consult Consult date: 03/01/24 - History of Present Illness Michael Varghese, is a 68-year-old male who was admitted to [facility] by Dr Copeland, for chronic left knee pain that failed conservative management he underwent left total knee arthroplasty, on 02/29/2024 he was admitted to medical floor postsurgery, consultation was requested for medical management while hospitalized. His past medical history is significant for history of hypertension, history of coronary artery disease with history of angioplasty and stent placement in the past, history of mitral valve disease, with mitral valve repair in the past and history of osteoarthritis On review of system patient is alert and oriented x 3 in no apparent distress, there is no fever or chills no headache or dizziness no chest pain no shortness of breath no cough no nausea or vomiting no abdominal pain no diarrhea no blood in the stools no burning with urination no frequency or urgency and no hematuria. Past Medical History Past Medical History: Coronary Artery Disease (CAD), Chest Pain / Angina, GERD/Reflux, Hyperlipidemia, Hypertension, Osteoarthritis (OA), Prostate Disorder Additional Past Medical History / Comment(s): Cardiac bypass(3 vessel) and mitral valve repair January 2000, heart cath with stents 2008 and 2013. Ocular migraines. Enlarged prostate. History of Any Multi-Drug Resistant Organisms: None Reported Past Surgical History: Appendectomy, Cardiac Valve Replacement, Coronary Bypass/CABG, Heart Catheterization With Stent Additional Past Surgical History / Comment(s): Mitral valve repair, CABG, colonoscopy. Past Anesthesia/Blood Transfusion Reactions: No Reported Reaction Date of Last Stent Placement:: 2013 Past Psychological History: No Psychological Hx Reported Smoking Status: Never smoker Past Alcohol Use History: Daily Additional Past Alcohol Use History / Comment(s): 2 beers daily. Past Drug Use History: None Reported - Past Family History Father Additional Family Medical History / Comment(s): Passed at 80 with heart disease. "May have thrown a clot after CABG surgery." Mother Additional Family Medical History / Comment(s): Passed at 56 with heart disease. Medications and Allergies Home Medications Medication Instructions Recorded Confirmed Type Aspirin EC [Ecotrin Low Dose] 81 mg PO W/SUPPER 08/07/21 02/29/24 History Cholecalciferol [Vitamin D3 (25 50 mcg PO W/SUPPER 08/07/21 02/29/24 History Mcg = 1000 Iu)] Multivitamins, Thera [Multivitamin 1 tab PO W/SUPPER 08/07/21 02/29/24 History (formulary)] Simvastatin 40 mg PO HS 08/07/21 02/29/24 History atenoloL 25 mg PO HS 08/07/21 02/29/24 History lisinopriL 2.5 mg PO HS 08/07/21 02/29/24 History Ezetimibe [Zetia] 10 mg PO QAM 02/26/23 02/29/24 History Ibuprofen [Motrin Ib] 200 mg PO DIRECTED PRN 02/26/23 02/29/24 History Isosorbide Mononitrate ER [Imdur] 30 mg PO QAM 02/26/23 02/29/24 History Omeprazole 40 mg PO BID 02/26/23 02/29/24 History Acetaminophen Tab [Tylenol Tab] 500 - 1,000 mg PO Q4-6H PRN 02/25/24 02/29/24 History Aspirin [Adult Low Dose Aspirin EC] 81 mg PO BID #60 tab 03/01/24 Rx Docusate [Colace] 100 mg PO BID #60 capsule 03/01/24 Rx HYDROcodone/APAP 5-325MG [[place] 1 - 2 tab PO Q6HR PRN #56 tab 03/01/24 Rx 5-325] Omeprazole 40 mg PO DAILY #30 cap 03/01/24 Rx Ondansetron [Zofran] 4 mg PO Q8HR PRN #20 tab 03/01/24 Rx Allergies Allergy/AdvReac Type Severity Reaction Status Date / Time No Known Allergies Allergy Verified 02/29/24 13:49 Physical Exam Vitals: Vital Signs Temp Pulse Resp BP Pulse Ox 03/01/24 00:58 97.7 F 79 18 123/71 97 02/29/24 19:45 83 137/62 93 L 02/29/24 19:30 81 122/64 90 L 02/29/24 19:15 80 130/71 90 L 02/29/24 19:00 80 106/59 91 L 02/29/24 18:45 98.2 F 80 120/64 91 L 02/29/24 18:15 79 18 104/65 95 02/29/24 17:54 79 18 106/66 92 L 02/29/24 17:39 81 16 106/63 94 L 02/29/24 17:24 82 16 108/63 93 L 02/29/24 17:09 97.8 F 85 16 113/62 97 02/29/24 14:34 58 L 12 130/69 99 02/29/24 14:02 98.2 F 52 L 12 140/76 98 Intake and Output 02/29/24 03/01/24 03/01/24 22:59 06:59 14:59 Intake Total 1150 Output Total 100 750 Balance 1050 -750 Intake: IV 1150 Output: Urine 750 Estimated Blood Loss 100 Other: Weight 78.7 kg In general patient is alert and oriented x 3 in no distress HEENT head normocephalic and atraumatic Neck is supple no JVD no goiter no lymphadenopathy no carotid bruit Chest examination is clear to auscultation no crackles no wheezing Cardiac exam reveals regular heart sounds S1 and S2 no gallops no murmurs Abdomen is soft nontender no organomegaly with normal bowel sounds Extremity exam reveals no edema no cyanosis or clubbing Neurological examination reveals no gross focal deficits Results CBC & Chem 7: 03/01/24 06:24 Labs: Abnormal Lab Results - Last 24 Hours (Table) 03/01/24 Range/Units 06:24 Sodium 134 L (135-145) mmol/L BUN/Creatinine Ratio 21.14 H (12.00-20.00) Ratio Glucose 122 H (70-110) mg/dL Total Protein 5.6 L (6.2-8.2) g/dL Assessment and Plan Plan: Advanced osteoarthritis status post left total knee arthroplasty Underlying history of hypertension Underlying history of coronary artery disease with history of angioplasty and stent placement in the past Underlying history of mitral valve disease with history of mitral valve repair Underlying history of osteoarthritis At this time patient was seen and examined Home medications reviewed and reordered DVT prophylaxis and pain management as per orthopedic surgery protocols Will follow during this admission for medical management needs. Patient does not have any medical complaints and is cleared medically for discharge when cleared by orthopedic surgery.
[2024-03-01 14:04] LABS: Basophils # (A) 0.01 X 10*3/uL (0.00-0.10); Basophils % (A) 0.1 %; Eosinophils # (A) 0 X 10*3/uL (0.04-0.35); Eosinophils % (A) 0 %; HCT 39.8 % (39.6-50.0); HGB 13.1 g/dL (13.0-17.0); Lymphocytes % (A) 5.9 %; MCH 28.9 pg (27.0-32.0); MCHC 32.9 g/dL (32.0-37.0); MCV 87.7 FL (80.0-97.0); Mean Platelet Volume 10.7 FL (9.5-12.2); Monocytes # (A) 0.98 X 10*3/uL (0.20-1.00); Monocytes % (A) 6.5 %; NRBC Per 100 WBC 0 X 10*3/uL (0.00-0.01); Neutrophils # (A) 13.19 X 10*3/uL (1.80-7.70); Neutrophils % (A) 87.1 %; Platelet Count 222 X 10*3/uL (140-440); RBC 4.54 X 10*6/uL (4.40-5.60); RDW 13.1 % (11.5-14.5); WBC 15.14 X 10*3/uL (4.50-10.00)
[2024-03-01] MEDS ORDERED: MULTIVITAMINS, THERA 1 EACH TAB PO SCH (17:30)
[2024-03-01] MEDS ORDERED: ASPIRIN 81 MG PO SCH (17:30)
[2024-03-01] MEDS ORDERED: CHOLECALCIFEROL 25 MCG (1000 IU) TABLET PO SCH (17:30)
== END 2024-03-01 13:07 | disposition home health service (06) ==
LOC: OR 13:18 → 4SSUR 17:16 → OR 03-01 13:07
PROVIDERS: ATTEND Orthopaedic Surgery
DX: M17.12 Unilateral primary osteoarthritis, left knee (principal); Z82.49 Family history of ischemic heart disease and other diseases of the circulatory system
CPT/HCPCS: 97161; 80053; 85025; 73560; 27447; J2250; J1100; J0690 ×2; J2405; J3490; J1885; 64447; 64999

== ENCOUNTER → 2024-07-22 | Outpatient (CLI) | payer MEDICARE ==
[2024-07-22 11:23] LABS: ALT 39 U/L (10-49); AST 28 U/L (14-35); Albumin 4.6 g/dL (3.8-4.9); Albumin/Globulin Ratio 1.92 Ratio (1.60-3.17); Alkaline Phosphatase 71 U/L (41-126); BUN/Creat Ratio 13.75 Ratio (12.00-20.00); Calcium 10.1 mg/dL (8.7-10.3); Carbon Dioxide 28.7 mmol/L (21.6-31.8); Chloride 101 mmol/L (96-109); Chol/HDL Ratio 2.47 Ratio; Globulin 2.4 g/dL (1.6-3.3); Glucose 112 mg/dL (70-110); LDL Cholesterol,Calculated 43.2 mg/dL (0.0-131.0); Potassium 5.1 mmol/L (3.5-5.5); Sodium 139 mmol/L (135-145)
== END | disposition home or self-care (01) ==
LOC: LABWHC1 06:56
PROVIDERS: ATTEND Internal Medicine Interventional Cardiology
DX: E78.2 Mixed hyperlipidemia (principal)
CPT/HCPCS: 36415; 80053; 80061